=== PATIENT | male | born 1975 | race American Indian/Alaskan Native ===

== ENCOUNTER 2021-02-02 07:50 | Emergency (ER) | payer SELFPAY ==
[2021-02-02] MEDS ORDERED: cloNIDine 0.2 MG TAB PO ONE (11:06)
--- NOTE | 2021-02-02 11:14 | Emergency Department Report ---
HPI - General Chief Complaint: Nosebleed Time Seen by Provider: 02/02/21 11:05 - [facility] HPI: Room 5 The patient is a 45-year-old male present with a chief complaint of epistaxis. The patient states he awakened this morning and noticed bleeding from bilateral nares. Patient denies any preceding trauma. Patient has a history of hypertension states she has been out of his medication for some time. ED Past Medical Hx - Past Medical History Hx Hypertension: Yes - Surgical History Past Surgical History?: No - Family History Family history: no significant - Social History Smoking Status: Current Every Day Smoker (1/5 pack/day) Substance Use Type: None (Denies illicit drug use), Alcohol (Rarely) - Medications Home Medications: Home Medications Medication Instructions Recorded Confirmed Last Taken Type Amoxicillin/Potassium Clav 1 each PO BID #14 tablet 02/02/21 Unknown Rx [Augmentin 500-125 Tablet] HYDROcodone/APAP 5-325 [[place] 1 - 2 each PO Q6HR PRN #12 tablet 02/02/21 Unknow n Rx 5/325] ED Review of Systems ROS: Stated complaint: NOSE BLEED Other details as noted in HPI Constitutional: no symptoms reported Eyes: denies: eye pain ENT: epistaxis Respiratory: no symptoms reported Cardiovascular: denies: chest pain Endocrine: no symptoms reported Gastrointestinal: denies: abdominal pain Genitourinary: denies: dysuria Musculoskeletal: denies: back pain Neurological: denies: headache Physical Exam - Physical Exam Vital Signs: Vital Signs 02/02/21 02/02/21 07:57 10:42 Temperature 97.5 F L 98.0 F Pulse Rate 90 95 H Respiratory 20 20 Rate Blood Pressure 202/124 201/127 O2 Sat by Pulse 99 97 Oximetry Physical Exam: GENERAL: The patient is well-developed well-nourished male lying on stretcher holding gauze to nose not appearing to be in acute distress. [] HEENT: Normocephalic. Atraumatic. Extraocular motions are intact. Patient has moist mucous membranes. Blood in oropharynx. NECK: Supple. Trachea midline CHEST/LUNGS: Clear to auscultation. There is no respiratory distress noted. HEART/CARDIOVASCULAR: Regular. There is no tachycardia. There is no gallop rub or murmur. ABDOMEN: Abdomen is soft, nontender. Patient has normal bowel sounds. There is no abdominal distention. SKIN: There is no rash. There is no edema. There is no diaphoresis. NEURO: The patient is awake, alert, and oriented. The patient is cooperative. The patient has no focal neurologic deficits. The patient has normal speech MUSCULOSKELETAL: There is no evidence of acute injury. ED Course Vital Signs 02/02/21 02/02/21 07:57 10:42 Temperature 97.5 F L 98.0 F Pulse Rate 90 95 H Respiratory 20 20 Rate Blood Pressure 202/124 201/127 O2 Sat by Pulse 99 97 Oximetry - Reevaluation(s) Reevaluation #1: 02/02/21 11:37 Oxymetazoline soaked gauze inserted into each nostril and external clamp improvised with tongue depressor stick together placed externally 02/02/21 12:41 Patient continue to have bleeding through despite Afrin soaked gauze in place with a clamp. Subsequently bilateral anterior posterior Rhino Rocket's were placed and patient is hemostatic ED Medical Decision Making - Lab Data Result diagrams: 02/02/21 11:45 Laboratory Tests 02/02/21 02/02/21 11:45 11:45 WBC 5.0 RBC 3.94 Hgb 12.9 Hct 38.8 MCV 99 H MCH 33 H MCHC 33 RDW 14.2 Plt Count 120 L Lymph % (Auto) 29.3 [place] % (Auto) 6.3 Eos % (Auto) 0.1 Baso % (Auto) 0.5 Lymph # (Auto) 1.5 [place] # (Auto) 0.3 Eos # (Auto) 0.0 Baso # (Auto) 0.0 Seg Neutrophils % 63.8 Seg Neutrophils # 3.2 PT 13.6 INR 1.06 APTT 32.1 Laboratory Tests 02/02/21 02/02/21 02/02/21 11:45 11:45 11:45 WBC 5.0 RBC 3.94 Hgb 12.9 Hct 38.8 MCV 99 H MCH 33 H MCHC 33 RDW 14.2 Plt Count 120 L Lymph % (Auto) 29.3 [place] % (Auto) 6.3 Eos % (Auto) 0.1 Baso % (Auto) 0.5 Lymph # (Auto) 1.5 [place] # (Auto) 0.3 Eos # (Auto) 0.0 Baso # (Auto) 0.0 Seg Neutrophils % 63.8 Seg Neutrophils # 3.2 PT 13.6 INR 1.06 APTT 32.1 Sodium 140 Potassium 3.7 Chloride 98.1 Carbon Dioxide 24 Anion Gap 22 BUN 14 Creatinine 0.8 Estimated GFR > 60 BUN/Creatinine Ratio 18 Glucose 94 Calcium 9.5 - Differential Diagnosis Epistaxis Critical care attestation.: If time is entered above; I have spent that time in minutes in the direct care of this critically ill patient, excluding procedure time. ED Disposition Clinical Impression: Epistaxis Disposition: DC- TO HOME OR SELFCARE Is pt being admited?: No Does the pt Need Aspirin: No Condition: Stable Instructions: Nosebleed, Adult Additional Instructions: Return to the emergency department should you develop worsening symptoms, inability to tolerate food or liquids, high fever or any other concerns Prescriptions: Amoxicillin/Potassium Clav [Augmentin 500-125 Tablet] 1 each PO BID #14 tablet HYDROcodone/APAP 5-325 [[place] 5/325] 1 - 2 each PO Q6HR PRN #12 tablet PRN Reason: Pain Referrals: PRIMARY CARE, [Primary Care Provider] - 3-5 Days VIRGINIA DONAHUE MD [Staff Physician] - [facility] (Dr. Donahue is an dump mot[employer] (ear nose and throat doctor). Please follow-up with him for further evaluation)
[2021-02-02] MEDS ORDERED: OXYMETAZOLINE 0.05% NASAL SPRAY NS ONE (11:16)
[2021-02-02] MEDS ORDERED: WATER FOR INJ Sterile (PF) 20 ML ONE (12:03)
[2021-02-02 12:18] LABS: Basophils % (Auto) 0.5 % (0.0-1.8); Eosinophils % (Auto) 0.1 % (0.0-4.3); Hematocrit 38.8 % (35.5-45.6); Hemoglobin 12.9 gm/dl (11.8-15.2); Lymphocytes # (Auto) 1.5 K/mm3 (1.2-5.4); Lymphocytes % (Auto) 29.3 % (13.4-35.0); Mean Corpuscular HGB Conc 33 % (32-34); Mean Corpuscular Volume 99 fl (84-94); Monocytes # (Auto) 0.3 K/mm3 (0.0-0.8); Monocytes % (Auto) 6.3 % (0.0-7.3); Platelet Count 120 K/mm3 (140-440); Red Blood Count 3.94 M/mm3 (3.65-5.03); Red Cell Distribution Width 14.2 % (13.2-15.2)
[2021-02-02 12:28] LABS: INR 1.06 (0.87-1.13); Partial Thromboplastin Time 32.1 Sec. (24.2-36.6)
[2021-02-02 12:41] LABS: BUN/Creatinine Ratio 18; Blood Urea Nitrogen 14 mg/dL (9-20); Calcium 9.5 mg/dL (8.4-10.2); Hemolysis Index 2
[2021-02-02 14:34] VITALS: BP 197/119
== END 2021-02-02 12:50 | disposition home or self-care (01) ==
LOC: ED 07:50
DX: R04.0 Epistaxis (principal); I10 Essential (primary) hypertension; F17.200 Nicotine dependence, unspecified, uncomplicated; Z79.899 Other long term (current) drug therapy
CPT/HCPCS: 36415; 80048; 85025; 85610; 85730; 99283

== ENCOUNTER 2021-02-06 10:33 | Emergency (ER) | payer SELFPAY ==
[2021-02-06 10:49] VITALS: BP 164/114
--- NOTE | 2021-02-06 11:53 | Emergency Department Report ---
ED ENT HPI - General Chief complaint: Nosebleed Stated complaint: REMOVAL OF NOSE ROCKET Time Seen by Provider: 02/06/21 11:10 Source: patient Mode of arrival: Ambulatory Limitations: No Limitations - History of Present Illness Initial comments: 45-year-old male nontoxic, well nourished in appearance, no acute signs of distress presents to the ED with c/o of nasal rocket packing removal from epistaxis was last week. Patient state he is currently taking antibiotics that was prescribed. Patient denies any outpatient follow-up. Patient denies otherw ise any symptoms or complaints. Denies any epistaxis. Denies any chest pain, shortness of breath, fever, chills, nausea, vomiting, headache or stiff neck. -: days(s) Severity scale (0 -10): 0 Improves with: none Worsens with: none Associated Symptoms: denies: fever, cough, gum swelling, toothache, pain with swallowing, sore throat, tinnitus, hearing loss, discharge from ear, rhinorrhea - Related Data Previous Rx's Medication Instructions Recorded Last Taken Type Amoxicillin/Potassium Clav 1 each PO BID #14 tablet 02/02/21 Unknown Rx [Augmentin 500-125 Tablet] HYDROcodone/APAP 5-325 [[place] 1 - 2 each PO Q6HR PRN #12 tablet 02/02/21 Unknown Rx 5/325] amLODIPine 5 mg PO DAILY #90 tab 02/02/21 Unknown Rx Allergies Allergy/AdvReac Type Severity Reaction Status Date / Time No Known Allergies Allergy Verified 02/06/21 10:49 ED Dental HPI - General Chief complaint: Nosebleed Stated complaint: REMOVAL OF NOSE ROCKET Time Seen by Provider: 02/06/21 11:10 Source: patient Mode of arrival: Ambulatory Limitations: No Limitations - Related Data Previous Rx's Medication Instructions Recorded Last Taken Type Amoxicillin/Potassium Clav 1 each PO BID #14 tablet 02/02/21 Unknown Rx [Augmentin 500-125 Tablet] HYDROcodone/APAP 5-325 [[place] 1 - 2 each PO Q6HR PRN #12 tablet 02/02/21 Unknown Rx 5/325] amLODIPine 5 mg PO DAILY #90 tab 02/02/21 Unknown Rx Allergies Allergy/AdvReac Type Severity Reaction Status Date / Time No Known Allergies Allergy Verified 02/06/21 10:49 ED Review of Systems ROS: Stated complaint: REMOVAL OF NOSE ROCKET Other details as noted in HPI Constitutional: denies: chills, fever Eyes: denies: eye pain, eye discharge, vision change ENT: denies: ear pain, throat pain Respiratory: denies: cough, shortness of breath, wheezing Cardiovascular: denies: chest pain, palpitations Endocrine: no symptoms reported Gastrointestinal: denies: abdominal pain, nausea, diarrhea Genitourinary: denies: urgency, dysuria Musculoskeletal: denies: back pain, joint swelling, arthralgia Skin: denies: rash, lesions Neurological: denies: headache, weakness, paresthesias Psychiatric: denies: anxiety, depression Hematological/Lymphatic: denies: easy bleeding, easy bruising ED Past Medical Hx - Past Medical History Hx Hypertension: Yes - Social History Smoking Status: Current Some Day Smoker Substance Use Type: Alcohol - Medications Home Medications: Home Medications Medication Instructions Recorded Confirmed Last Taken Type Amoxicillin/Potassium Clav 1 each PO BID #14 tablet 02/02/21 Unknown Rx [Augmentin 500-125 Tablet] HYDROcodone/APAP 5-325 [[place] 1 - 2 each PO Q6HR PRN #12 tablet 02/02/21 Unknown Rx 5/325] amLODIPine 5 mg PO DAILY #90 tab 02/02/21 Unknown Rx ED Physical Exam - General Limitations: No Limitations General appearance: alert, in no apparent distress - Head Head exam: Present: atraumatic, normocephalic - Eye Eye exam: Present: normal appearance - Expanded ENT Exam Expanded Ear exam: Present: normal external inspection Mouth exam: Present: normal external inspection, tongue normal. Absent: drooling, trismus, muffled voice Teeth exam: Present: normal inspection Throat exam: Positive: normal inspection - Neck Neck exam: Present: normal inspection, full ROM. Absent: lymphadenopathy - Respiratory Respiratory exam: Absent: respiratory distress - Cardiovascular Cardiovascular Exam: Present: regular rate - Extremities Exam Extremities exam: Present: full ROM - Back Exam Back exam: Present: full ROM - Neurological Exam Neurological exam: Present: alert, oriented X3 - Psychiatric Psychiatric exam: Present: normal affect, normal mood - Skin Skin exam: Present: warm, dry, intact, normal color. Absent: rash - Other Other exam information: Negative epistaxis noted after removal of the nasal packing. ED Course Vital Signs 02/06/21 10:48 Temperature 97.8 F Pulse Rate 108 H Respiratory 20 Rate Blood Pressure 164/114 O2 Sat by Pulse 99 Oximetry - Reevaluation(s) Reevaluation #1: 02/06/21 11:52 Patient is speaking in full sentences with no signs of distress noted. ED Medical Decision Making - Medical Decision Making Patient is stable and was examined by me. Packing has been removed and patient tolerated well. No epistaxis noted on exam. No hematoma. Patient was instructed to follow-up with a primary care doctor in 3-5 days or if symptoms worsen and continue return to emergency room as soon as possible. At time of discharge, the patient does not seem toxic or ill in appearance. No acute signs of distress noted. Patient agrees to discharge treatment plan of care. No further questions noted by the patient. Critical care attestation.: If time is entered above; I have spent that time in minutes in the direct care of this critically ill patient, excluding procedure time. ED Disposition Clinical Impression: Encounter for removal of nasal packing Disposition: DC-01 TO HOME OR SELFCARE Is pt being admited?: No Does the pt Need Aspirin: No Condition: Stable Additional Instructions: Follow-up with a primary care doctor in 3-5 days or if symptoms worsen and continue return to emergency room as soon as possible. Continue taking antibiotics as prescribed during appears visit. Referrals: PRIMARY CARE, [Referring] - 3-5 Days Forms: Work/School Release Form(ED) Time of Disposition: 11:53
== END 2021-02-06 12:12 | disposition home or self-care (01) ==
LOC: ED 10:33
DX: Z48.00 Encounter for change or removal of nonsurgical wound dressing (principal); I10 Essential (primary) hypertension; F17.200 Nicotine dependence, unspecified, uncomplicated; Z79.899 Other long term (current) drug therapy
CPT/HCPCS: 99282